=== PATIENT | female | born 1995 | race Asian ===

== ENCOUNTER 2022-07-19 16:39 | Emergency (ER) | payer OTHER ==
[2022-07-19 17:31] LABS: BILIRUBIN,URINE NEGATIVE (NEGATIVE); GLUCOSE, URINE (UA) NEGATIVE (NEGATIVE); KETONES,URINE (UA) NEGATIVE (NEGATIVE); LEUKOCYTE ESTERASE, URINE NEGATIVE (NEGATIVE); NITRITE,URINE NEGATIVE (NEGATIVE); OCCULT BLOOD,URINE LARGE (NEGATIVE); PH,URINE 6.5 PH (5.0-7.5); PROTEIN,URINE NEGATIVE (NEGATIVE); UROBILINOGEN,URINE 0.2 (NORMAL) E.U./dL (NORMAL)
[2022-07-19 17:35] LABS: CLARITY,URINE HAZY (CLEAR); HCG UR QUAL NEGATIVE
[2022-07-19 17:44] LABS: BASOPHILS % (AUTO) 0.6 %; EOSINOPHILS # (AUTO) 0.1 10^3/uL (0.0-0.7); EOSINOPHILS % (AUTO) 0.7 %; HCT - HEMATOCRIT 42.8 % (37.0-47.0); HGB - HEMOGLOBIN 14.3 g/dL (12.0-16.0); LYMPHOCYTES # (AUTO) 2.5 10^3/uL (1.5-3.5); LYMPHOCYTES % (AUTO) 37.1 %; MEAN CORPUSCULAR HEMOGLOBIN 30.8 pg (27.0-31.0); MEAN CORPUSCULAR HGB CONC 33.4 g/dL (32.0-36.0); MEAN CORPUSCULAR VOLUME 92.2 fL (81.0-99.0); MEAN PLATELET VOLUME 9.8 fL (7.9-10.8); MONOCYTES # (AUTO) 0.7 10^3/uL (0.0-1.0); MONOCYTES % (AUTO) 9.6 %; NEUTROPHILS # (AUTO) 3.5 10^3/uL (1.5-6.6); NEUTROPHILS % (AUTO) 51.7 %; PLT - PLATELET COUNT 193 10^3/uL (130-450); RED BLOOD COUNT 4.64 10^6/uL (4.20-5.40); RED CELL DISTRIBUTION WIDTH 11.8 % (12.0-15.0); WHITE BLOOD COUNT 6.7 x10^3/uL (4.8-10.8)
[2022-07-19 17:47] LABS: AMORPHOUS SEDIMENT,UR Few /LPF; BACTERIA,URINE Few /HPF (None Seen); SQUAMOUS EPITHELIAL CELL,UR FEW Squamous (<= Few); WBC,URINE 0-3 /HPF (0-5)
[2022-07-19 18:03] LABS: ALBUMIN 4.3 g/dL (3.2-5.5); ALBUMIN/GLOBULIN RATIO 1.3 (1.0-2.2); BILIRUBIN,TOTAL 0.5 mg/dL (0.2-1.0); CALCIUM 9.1 mg/dL (8.5-10.3); CREATININE 0.8 mg/dL (0.4-1.0); POTASSIUM 4.3 mmol/L (3.5-5.0); TOTAL PROTEIN 7.5 g/dL (6.7-8.2)
--- NOTE | 2022-07-19 18:43 | ED Physician Documentation ---
History of Present Illness - Stated complaint Stated Complaint: NEAR SYNCOPE - Chief complaint Chief Complaint: Neuro - History obtained from History obtained from: Patient - History of Present Illness Timing: Today Pain level max: 1 Pain level now: 0 - Additonal information Additional information: Patient is a 27-year-old female who presents to the emergency department stating she had an episode of near syncope today. She states that she was lightheaded and dizzy this morning. Resolved after she sat down. She states that she was late for her menses, but did start her menstrual cycle today. Had 1 episode of sharp abdominal pain. Lasted 1 to 2 seconds. No chest pain. No shortness of breath. No headache. Review of Systems Constitutional: denies: Fever, Chills Cardiac: denies: Chest pain / pressure, Palpitations Respiratory: denies: Dyspnea, Cough GI: denies: Abdominal Pain, Vomiting, Diarrhea Skin: denies: Rash Musculoskeletal: denies: Neck pain, Back pain Neurologic: denies: Headache PD PAST MEDICAL HISTORY - Past Medical History Past Medical History: No - Past Surgical History Past Surgical History: No - Present Medications Home Medications: Ambulatory Orders Medication Instructions Recorded Confirmed No Known Home Medications 07/19/22 07/19/22 - Allergies Allergies/Adverse Reactions: Allergies Allergy/AdvReac Type Severity Reaction Status Date / Time No Known Drug Allergies Allergy Verified 07/19/22 16:52 PD ED PE NORMAL - Vitals Vital signs reviewed: Yes - General General: Alert and oriented X 3, No acute distress - HEENT HEENT: Moist mucous membranes - Neck Neck: Supple, no meningeal sign - Cardiac Cardiac: RRR, Strong equal pulses - Respiratory Respiratory: No respiratory distress, Clear bilaterally - Abdomen Abdomen: Soft, Non tender, Non distended - Back Back: No CVA TTP, No spinal TTP - Derm Derm: Warm and dry, No rash - Extremities Extremities: No edema, No calf tenderness / cord - Neuro Neuro: Alert and oriented X 3 - Psych Psych: Normal mood, Normal affect Results - Vitals Vitals: Vital Signs - 24 hr 07/19/22 16:47 Temperature 36.4 C L Heart Rate 71 Respiratory 16 Rate Blood Pressure 130/81 H O2 Saturation 99 Oxygen O2 Source Room air - EKG (time done) 1811 Rate: Rate (enter#) (61) Rhythm: NSR [place]: Normal Intervals: Normal MS QRS: Normal Ischemia: Normal ST segments - Labs Labs: Laboratory Tests 07/19/22 07/19/22 07/19/22 16:55 17:37 17:37 WBC 6.7 RBC 4.64 Hgb 14.3 Hct 42.8 MCV 92.2 MCH 30.8 MCHC 33.4 RDW 11.8 L Plt Count 193 MPV 9.8 Neut # (Auto) 3.5 Lymph # (Auto) 2.5 [place] # (Auto) 0.7 Eos # (Auto) 0.1 Baso # (Auto) 0.0 Absolute Nucleated RBC 0.00 Nucleated RBC % 0.0 Sodium 139 Potassium 4.3 Chloride 105 Carbon Dioxide 26 Anion Gap 8.0 BUN 12 Creatinine 0.8 Estimated GFR (MDRD) 87 L Glucose 102 H Calcium 9.1 Total Bilirubin 0.5 AST 22 ALT 19 Alkaline Phosphatase 67 Troponin I High Sens Total Protein 7.5 Albumin 4.3 Globulin 3.2 Albumin/Globulin Ratio 1.3 Lipase 34 Urine Color YELLOW Urine Clarity HAZY Urine pH 6.5 Ur Specific [place] 1.010 Urine Protein NEGATIVE Urine Glucose (UA) NEGATIVE Urine Ketones NEGATIVE Urine Occult Blood LARGE H Urine Nitrite NEGATIVE Urine Bilirubin NEGATIVE Urine Urobilinogen 0.2 (NORMAL) Ur Leukocyte Esterase NEGATIVE Urine RBC 6-10 H Urine WBC 0-3 Ur Squamous Epith Cells FEW Squamous Amorphous Sediment Few Urine Bacteria Few Ur Microscopic Review INDICATED Urine Culture Comments NOT INDICATED Urine HCG, Qual NEGATIVE 07/19/22 17:37 WBC RBC Hgb Hct MCV MCH MCHC RDW Plt Count MPV Neut # (Auto) Lymph # (Auto) [place] # (Auto) Eos # (Auto) Baso # (Auto) Absolute Nucleated RBC Nucleated RBC % Sodium Potassium Chloride Carbon Dioxide Anion Gap BUN Creatinine Estimated GFR (MDRD) Glucose Calcium Total Bilirubin AST ALT Alkaline Phosphatase Troponin I High Sens < 2.3 L Total Protein Albumin Globulin Albumin/Globulin Ratio Lipase Urine Color Urine Clarity Urine pH Ur Specific [place] Urine Protein Urine Glucose (UA) Urine Ketones Urine Occult Blood Urine Nitrite Urine Bilirubin Urine Urobilinogen Ur Leukocyte Esterase Urine RBC Urine WBC Ur Squamous Epith Cells Amorphous Sediment Urine Bacteria Ur Microscopic Review Urine Culture Comments Urine HCG, Qual PD MEDICAL DECISION MAKING - ED course Complexity details: reviewed results, re-evaluated patient, considered differential, d/w patient ED course: Patient is a 27-year-old female with a brief episode of near syncope this morning. Sounds as if this may have been vasovagal. She did not eat and drink much this morning. Her symptoms resolved this morning. She has had no recurrence throughout the day. Asymptomatic here. No acute findings on EKG, laboratory testing. Her test is negative. No evidence of ectopic. Patient counseled regarding signs and symptoms for which I believe and urgent re-evaluation would be necessary. Patient with good understanding of and agreement to plan and is comfortable going home at this time This document was made in part using voice recognition software. While efforts are made to proofread this document, sound alike and grammatical errors may occur. Departure - Departure Disposition: 01 Home, Self Care Clinical Impression: Near syncope Condition: Good Instructions: ED Near Syncope Unkn Follow-Up: your,doctor as needed [Other] Comments: The cause of your symptoms is unclear today. Please follow-up with your doctor for further care. Return if you worsen.
[2022-07-19 18:55] VITALS: BP 110/67
== END 2022-07-19 18:56 | disposition home or self-care (01) ==
LOC: ED 16:39
DX: R55 Syncope and collapse (principal)
CPT/HCPCS: 36415; 80053; 81001; 81003; 81025; 83690; 84484; 85025; 87086; 93005; 99282; 99284

== ENCOUNTER 2022-08-28 15:37 | Emergency (ER) | payer OTHER ==
[2022-08-28 15:50] VITALS: BP 131/76
[2022-08-28 16:45] LABS: HCG UR QUAL NEGATIVE
--- NOTE | 2022-08-28 16:55 | ED Physician Documentation ---
PD HPI HEAD INJURY - Stated complaint Stated Complaint: CONCUSSION - Chief complaint Chief Complaint: Neuro - History obtained from History obtained from: Patient, Family - History of Present Illness Mechanism of head injury: Blow Where head injury occurred: [place] Timing - onset: How many days ago (2) Location of injury: Front Quality of pain: Pain, Throbbing Associated symptoms: Nausea / vomiting, Neck pain, Other (nasal contusion). No: LOC, AMS, Amnesia, Paresthesias, Seizures, Ear drainage, Nasal drainage Symptoms improve with: Rest Symptoms worsen with: Palpation, Movement Contributing factors: No: Anticoagulated, Intoxicated Similar symptoms before: Has not had sx before Recently seen: Not recently seen - Additional information Additional information: 27-year-old Eda struck on was at a concert 2 days ago and she was dancing and struck her nose against the back of another person's head. She saw stars with that but she did not have loss of consciousness. She has some pain in her neck and she states that she continued with the concert and over the next 2 days has developed some nausea without vomiting. She has had a headache as well in the occipital area Review of Systems Constitutional: denies: Fever Eyes: denies: Loss of vision, Decreased vision Ears: denies: Ear pain Nose: denies: Rhinorrhea / runny nose, Congestion Throat: denies: Sore throat Cardiac: denies: Chest pain / pressure, Palpitations Respiratory: denies: Dyspnea, Cough GI: reports: Nausea. denies: Abdominal Pain, Vomiting : denies: Dysuria, Frequency Skin: denies: Rash Musculoskeletal: reports: Neck pain. denies: Back pain, Extremity pain Neurologic: reports: Headache, Head injury. denies: Generalized weakness, Focal weakness, Numbness, Confused, Altered mental status, LOC PD PAST MEDICAL HISTORY - Past Medical History Past Medical History: No - Past Surgical History Past Surgical History: No - Present Medications Home Medications: Ambulatory Orders Medication Instructions Recorded Confirmed No Known Home Medications 07/19/22 08/28/22 - Allergies Allergies/Adverse Reactions: Allergies Allergy/AdvReac Type Severity Reaction Status Date / Time No Known Drug Allergies Allergy Verified 08/28/22 15:50 - Social History Does the pt smoke?: No Does the pt drink ETOH?: Yes Does the pt have substance abuse?: No - Immunizations Immunizations are current?: Yes - POLST Patient has POLST: No PD ED PE NORMAL - Vitals Vital signs reviewed: Yes (hypertensive mild ) - General General: Alert and oriented X 3, No acute distress, Well developed/nourished - HEENT HEENT: PERRL, EOMI, Other (there is mild midfacial swelling from nasal contusion ) - Neck Neck: Supple, no meningeal sign, Other (mild mid cervical point tenderness) - Cardiac Cardiac: RRR, No murmur - Respiratory Respiratory: No respiratory distress, Clear bilaterally - Abdomen Abdomen: Normal bowel sounds, Soft, Non tender, Non distended, No organomegaly - Back Back: No CVA TTP, No spinal TTP - Derm Derm: Normal color, Warm and dry, No rash - Extremities Extremities: No deformity, No edema - Neuro Neuro: Alert and oriented X 3, bow maker machine tender 2-12 intact, No motor deficit, No sensory deficit, Normal speech Eye Opening: Spontaneous Motor: Obeys Commands Verbal: Oriented GCS Score: 15 - Psych Psych: Normal mood, Normal affect Results - Vitals Vitals: Vital Signs - 24 hr 08/28/22 15:47 Temperature 36.7 C Heart Rate 66 Respiratory 16 Rate Blood Pressure 131/76 H O2 Saturation 100 Oxygen O2 Source Room air - Labs Labs: Laboratory Tests 08/28/22 16:36 Urine HCG, Qual NEGATIVE - Rads (name of study) CT head Radiology: Prelim report reviewed (Impression: No intracranial hemorrhage or other acute intracranial abnormality.), EMP read indepedently, See rad report CT cervical spine Radiology: Prelim report reviewed (Impression: No CT evidence of acute traumatic cervical spine injury.), EMP read indepedently, See rad report PD MEDICAL DECISION MAKING - ED course Complexity details: reviewed old records, reviewed results, re-evaluated patient, considered differential, d/w patient, d/w family ED course: 27-year-old female with a concussion without loss of consciousness has a persistent headache and some nausea. CT scan of the head and neck are without findings. Patient is reassured. Departure - Departure Disposition: 01 Home, Self Care Clinical Impression: Concussion Qualifiers: Encounter type: initial encounter Loss of consciousness presence/duration: without LOC Qualified Code(s): S06.0X0A - Concussion without loss of consciousness, initial encounter Cervical strain, acute Qualifiers: Encounter type: initial encounter Qualified Code(s): S16.1XXA - Strain of muscle, fascia and tendon at neck level, initial encounter Condition: Stable Instructions: ED Sprain Strain Neck, ED Concussion Follow-Up: NOLAN Vaughn [Provider Group] Comments: Eda, Today it looks like you have had a concussion and there is no evidence of bleeding into the cranial cavity. There are no abnormalities to the neck as well. With concussion symptoms usually resolve rapidly but can persist. The most frequent persistent symptom is headache. Usually the nausea resolves rapidly and difficulty concentrating, dizziness and light headedness are variable. The important factor in resolution is to not get a second concussion while you are recovering from the initial concussion.
--- NOTE | 2022-08-28 17:01 | CT Report ---
PROCEDURE: HEAD WO INDICATIONS: concussion persistent nausea TECHNIQUE: Noncontrast 4.5 mm thick angled axial sections acquired from the foramen magnum to the vertex. For r adiation dose reduction, the following was used: automated exposure control, adjustment of mA and/or kV according to patient size. COMPARISON: None. FINDINGS: Image quality: Excellent. CSF spaces: Basal cisterns are patent. No extra-axial fluid collections. Ventricles are normal in size and shape. Brain: No midline shift. No intracranial masses or hemorrhage. Ta-white matter interface is norm al. Skull and face: Calvarium and visualized facial bones are intact, without suspicious lesions. Sinuses: Visualized sinuses and mastoids are clear. IMPRESSION: No intracranial hemorrhage or other acute intracranial abnormality. Reviewed by: Keon Henderson MD on 08/28/2022 5:00 PM PDT Approved by: Keon Henderson MD on 08/28/2022 5:00 PM PDT Station ID: [id number]
--- NOTE | 2022-08-28 17:06 | CT Report ---
PROCEDURE: CERVICAL SPINE WO INDICATIONS: concussion neck pain TECHNIQUE: Noncontrast 3 mm thick sections acquired from the skull base to the T4 level. Sagittal and coronal r eformats were then constructed. For radiation dose reduction, the following was used: automated exp osure control, adjustment of mA and/or kV according to patient size. COMPARISON: None. FINDINGS: Image quality: Excellent. Bones: No fractures or dislocations. Visualized superior ribs are intact. Soft tissues: Prevertebral soft tissues are normal in thickness. No paravertebral hematomas. No ap ical pneumothoraces. IMPRESSION: No CT evidence of acute traumatic cervical spine injury. Reviewed by: Samir Harris MD on 08/28/2022 5:04 PM PDT Approved by: Samir Harris MD on 08/28/2022 5:04 PM PDT Station ID: [id number]
== END 2022-08-28 17:54 | disposition home or self-care (01) ==
LOC: ED 15:37
DX: S06.0X0A Concussion without loss of consciousness, initial encounter (principal); S16.1XXA Strain of muscle, fascia and tendon at neck level, initial encounter; S00.33XA Contusion of nose, initial encounter; W51.XXXA Accidental striking against or bumped into by another person, initial encounter; Y93.41 Activity, dancing; Y92.830 Public park as the place of occurrence of the external cause
CPT/HCPCS: 81025; 99284

== ENCOUNTER 2023-10-18 10:05 | Emergency (ER) | payer OTHER ==
--- NOTE | 2023-10-18 11:05 | ED Physician Documentation ---
History of Present Illness - Stated complaint Stated Complaint: ,DIARRHEA - Chief complaint Chief Complaint: Abd Pain - History obtained from History obtained from: Patient - Additonal information Additional information: The patient comes to the emergency department chief complaint of abdominal cramping, bloody diarrhea, and early . The patient states she just had the positive test on October 12 and this is her first . She states that she began to have abdominal cramping overnight and around midnight, had an episode of watery diarrhea. She states that a couple hours later, she had the urge to defecate again and this time, it seemed to be mostly blood mixed with mucus. The patient had a third episode which seem to have less blood but then a fourth episode seem to have more blood again. Patient states that the dark maroon color. She denies any rectal pain. No fevers or chills. No urinary symptoms. She denies any blood on her underwear in between attempts to defecate. No other complaints at this time. PD PAST MEDICAL HISTORY - Past Medical History Past Medical History: No - Past Surgical History Past Surgical History: No - Present Medications Home Medications: Ambulatory Orders Medication Instructions Recorded Confirmed No Known Home Medications 07/19/22 10/18/23 - Allergies Allergies/Adverse Reactions: Allergies Allergy/AdvReac Type Severity Reaction Status Date / Time No Known Drug Allergies Allergy Verified 10/18/23 10:16 - Social History Does the pt smoke?: No Smoking Status: Never smoker Does the pt drink ETOH?: Yes Does the pt have substance abuse?: No - Immunizations Immunizations are current?: Yes - POLST Patient has POLST: No PD ED PE NORMAL - Vitals Vital signs reviewed: Yes - General General: Alert and oriented X 3, No acute distress, Well developed/nourished - HEENT HEENT: Atraumatic, PERRL, EOMI, Moist mucous membranes - Neck Neck: Supple, no meningeal sign - Cardiac Cardiac: RRR, No murmur - Respiratory Respiratory: No respiratory distress, Clear bilaterally - Abdomen Abdomen: Soft, Non tender, Non distended - Female Female : Deferred - Rectal Rectal: Deferred - Derm Derm: Normal color, Warm and dry, No rash - Extremities Extremities: No deformity - Neuro Neuro: Alert and oriented X 3 - Psych Psych: Normal mood, Normal affect Results - Vitals Vitals: Vital Signs - 24 hr 10/18/23 10/18/23 10/18/23 10:11 11:40 12:50 Temperature 36.9 C 37.3 C 36.9 C Heart Rate 84 82 99 Respiratory 15 16 16 Rate Blood Pressure 127/81 H 138/83 H 109/69 O2 Saturation 98 100 100 10/18/23 13:25 Temperature Heart Rate 85 Respiratory 14 Rate Blood Pressure 127/84 H O2 Saturation 99 Oxygen O2 Source Room air - Labs Labs: Laboratory Tests 10/18/23 10/18/23 10:38 10:38 WBC 8.4 RBC 4.37 Hgb 13.5 Hct 41.2 MCV 94.3 MCH 30.9 MCHC 32.8 RDW 11.7 L Plt Count 218 MPV 9.8 Neut # (Auto) 6.1 Lymph # (Auto) 1.5 [place] # (Auto) 0.6 Eos # (Auto) 0.1 Baso # (Auto) 0.0 Absolute Nucleated RBC 0.00 Nucleated RBC % 0.0 Beta HCG, Quant 476.2 - Rads (name of study) Ultrasound pelvis/OB Relevant Findings:: Final report received, See rad report (Negative) PD Medical Decision Making - ED course Complexity details: reviewed results, re-evaluated patient, considered differential, d/w patient ED course: The patient was worked up with labs and US. The patient's laboratory studies showed a normal H&H and a quant hCG of 467. Ultrasound is negative. I discussed with the patient that her lower GI bleeding will most likely resolve with resolution of her diarrhea but if it does not, she will need to follow-up with her primary doctor to discuss having a colonoscopy. As far as her , she is extremely early as evidenced by her quant and her negative ultrasound. We have discussed that most likely, she will need to have repeat lab and ultrasound at some point in the coming weeks. For now though, the patient does not have any vaginal complaints or abdominal pain/cramping, I feel she is stable for discharge home. We have discussed the usual indications for return. Departure - Departure Disposition: 01 Home, Self Care Clinical Impression: First trimester , Lower GI bleed Diarrhea Qualifiers: Diarrhea type: unspecified type Qualified Code(s): R19.7 - Diarrhea, unspecified Condition: Stable Instructions: Preg 1st Trimester, Preg 1st Trimester Coping, ED Diarrhea Viral Comments: Your labs look great. Your red blood cell levels are completely normal and your hormones are about where we expect them to be for your stage of . Unfortunately, because you are so early in , we were not able to see anything on ultrasound in terms of evaluating the itself. It is important that you follow-up if you do have any worsening pain or development of vaginal bleeding and be reevaluated. For now, it is most likely that the blood you have noticed when you have diarrhea is coming from one of the veins in your rectal or anal area. In general, this bleeding is expected to stop once her diarrhea resolves. There is no evidence that you are losing a dangerous amount of blood at this time. Since you are not noticing any blood in your underwear in between defecating, it is unlikely that you are having bleeding from your vagina itself. If you develop severely worsening pain or bleeding, please return to the emergency department. Otherwise, please follow- up with your OB and primary care doctors. Forms: PCP List Discharge Date/Time: 10/18/23 13:25
[2023-10-18 11:08] LABS: BASOPHILS % (AUTO) 0.5 %; EOSINOPHILS # (AUTO) 0.1 10^3/uL (0.0-0.7); HCT - HEMATOCRIT 41.2 % (37.0-47.0); HGB - HEMOGLOBIN 13.5 g/dL (12.0-16.0); LYMPHOCYTES # (AUTO) 1.5 10^3/uL (1.5-3.5); LYMPHOCYTES % (AUTO) 17.8 %; MEAN CORPUSCULAR HEMOGLOBIN 30.9 pg (27.0-31.0); MEAN CORPUSCULAR HGB CONC 32.8 g/dL (32.0-36.0); MEAN CORPUSCULAR VOLUME 94.3 fL (81.0-99.0); MEAN PLATELET VOLUME 9.8 fL (7.9-10.8); MONOCYTES # (AUTO) 0.6 10^3/uL (0.0-1.0); MONOCYTES % (AUTO) 7.3 %; NEUTROPHILS # (AUTO) 6.1 10^3/uL (1.5-6.6); NEUTROPHILS % (AUTO) 72.8 %; PLT - PLATELET COUNT 218 10^3/uL (130-450); RED BLOOD COUNT 4.37 10^6/uL (4.20-5.40); RED CELL DISTRIBUTION WIDTH 11.7 % (12.0-15.0); WHITE BLOOD COUNT 8.4 x10^3/uL (4.8-10.8)
--- NOTE | 2023-10-18 13:00 | Ultrasound Report ---
PROCEDURE: OB First Trimester INDICATIONS: vaginal bleeding 1st trimester OUTSIDE/PRIOR DATING DATA: Last menstrual period (LMP): 09/13/2023. LMP-based estimated date of delivery (MISSY): 07/09/2024. First dating scan (date and location): Not applicable. Estimated date of delivery (MISSY) from first dating scan: Not. TECHNIQUE: Real-time scanning was performed of the fetus and maternal pelvic organs, with image documentation. COMPARISON: None. FINDINGS: Intrauterine gestational sac not seen. Maternal organs: Ovaries appear within normal limits. IMPRESSION: of unknown location, given no visualized intrauterine gestational sac or adnexal mass. Diff erential includes early gestational , ectopic or miscarriage. Trend beta hCG and s onographic follow up as necessary. Reviewed by: Deshaun Dan on 10/18/2023 11:59 AM MOY Approved by: Deshaun Dan on 10/18/2023 11:59 AM [id number] Station ID: [id number]
[2023-10-18 13:35] VITALS: BP 127/84; O2SAT 99
== END 2023-10-18 13:25 | disposition home or self-care (01) ==
LOC: ED 10:05
DX: O99.611 Diseases of the digestive system complicating pregnancy, first trimester (principal); K92.2 Gastrointestinal hemorrhage, unspecified; Z3A.01 Less than 8 weeks gestation of pregnancy
CPT/HCPCS: 36415; 84702; 85025; 99283; 99284

== ENCOUNTER 2024-02-16 11:15 | Outpatient (CLI) | payer OTHER ==
[2024-02-16 17:48] LABS: BASOPHILS # (AUTO) 0.1 10^3/uL (0.0-0.1); BASOPHILS % (AUTO) 0.7 %; EOSINOPHILS % (AUTO) 0.3 %; HCT - HEMATOCRIT 36.6 % (37.0-47.0); HGB - HEMOGLOBIN 12.1 g/dL (12.0-16.0); LYMPHOCYTES # (AUTO) 2.3 10^3/uL (1.5-3.5); LYMPHOCYTES % (AUTO) 22.6 %; MEAN CORPUSCULAR HEMOGLOBIN 31.5 pg (27.0-31.0); MEAN CORPUSCULAR HGB CONC 33.1 g/dL (32.0-36.0); MEAN CORPUSCULAR VOLUME 95.3 fL (81.0-99.0); MEAN PLATELET VOLUME 10.2 fL (7.9-10.8); MONOCYTES # (AUTO) 0.7 10^3/uL (0.0-1.0); MONOCYTES % (AUTO) 6.5 %; NEUTROPHILS # (AUTO) 6.6 10^3/uL (1.5-6.6); NEUTROPHILS % (AUTO) 65.5 %; PLT - PLATELET COUNT 193 10^3/uL (130-450); RED BLOOD COUNT 3.84 10^6/uL (4.20-5.40); RED CELL DISTRIBUTION WIDTH 12.9 % (12.0-15.0); WHITE BLOOD COUNT 10.1 x10^3/uL (4.8-10.8)
[2024-02-16 18:11] LABS: ALBUMIN 3.7 g/dL (3.2-5.5); ALBUMIN/GLOBULIN RATIO 1.5 (1.0-2.2); BILIRUBIN,TOTAL 0.2 mg/dL (0.2-1.0); CALCIUM 9.2 mg/dL (8.5-10.3); CREATININE 0.4 mg/dL (0.6-1.3); POTASSIUM 3.9 mmol/L (3.5-4.5); TOTAL PROTEIN 6.1 g/dL (6.4-8.9)
== END 2024-02-16 11:30 | disposition home or self-care (01) ==
LOC: LAB.N 11:15
PROVIDERS: ATTEND Nurse Practitioner
DX: R42 Dizziness and giddiness (principal)
CPT/HCPCS: 36415; 80053; 85025